=== PATIENT | female | born 1940 | race Caucasian/White ===

== ENCOUNTER 2016-10-08 10:53 | Observation (INO) | payer OTHER ==
[~2016-10-08] VITALS: Ht 144.8 cm; Wt 66.0 kg
--- NOTE | ~2016-10-08 | MR18 ---
[facility] A Service of [facility] RADIOLOGY TEXT RESULTS PATIENT: SHAI RAMOS LOCATION: [facility] 320-01 : 41 UNIT #: [id number] AGE: [address]: Consuelo Owusu MD SEX: F ORDER DR: [id number] [facility] [address] [place], [place] [address] [id number] I MR#: [id number] Acc #: [id number] NAME: SHAI RAMOS : 1940 SEX: F STUDY DATE/TIME: 10/08/2016 13:04 [facility] ROOM: 320 STUDY DESCRIPTION: MR Brain Wo Contrast Attending Physician: Brit Reinoso M.D. Ordering Physician: Jerzy Lyons M.D. Primary Care Physician: Ana Ospina M.D. MRI CENTER REPORT This report is preliminary unless electronic signature is present. EXAM MRI of the brain without contrast dated 10/08/2016. COMPARISON MRI of the brain without contrast dated 08/26/2014. HISTORY Difficulty with speech. Patient was last seen normal at 0900 hours on 10/08/2016. History of stroke 2 years ago. FINDINGS Multisequence multiplanar imaging of the brain was obtained without contrast. There appears to be a dural-based mass along the superior aspect of the right anterior clinoid process and extending posterior and inferior to it. There is also some medial and lateral extension along the nearby bone. It has a lobulated appearance. It measures 1.3 x 2.2 x 0.8 cm. It was also noted in the prior study. It appears to have increased in overall volume from 0.9 x 1.3 x 0.4 cm. Postcontrast evaluation would be helpful. There are multiple patchy hyperintense T2-signal lesions noted in the periventricular and subcortical white matter. Previously noted large stroke in the left posterior frontal and anterior left parietal region have evolved in the interval towards gliosis and encephalomalacic changes. Hyperintense T2-signal changes are also noted in bilateral external/extreme capsules. S-shaped nasal septal deviation is seen. Paranasal sinuses, orbits with the ocular structures are unremarkable. Moderate right and ywrs-hb-ikzanuno left mastoid mucosal thickening is seen. IMPRESSION 1. No acute stroke. 2. There appears to be a lobulated dural-based mass in the region of the right anterior clinoid process extending medially and laterally along the sphenoid wing. It is most suggestive of lesion like meningioma. [facility]. [facility] A Service of [facility] RADIOLOGY TEXT RESULTS PATIENT: SHAI RAMOS LOCATION: [facility] 320-01 : 41 UNIT #: [id number] AGE: [address]: Consuelo Owusu MD SEX: F ORDER DR: It is increased in volume when compared to the prior study from 2 years ago, when it measured 0.9 x 1.3 x 0.4 cm. It probably has a greatest dimension of 1.3 cm than when compared to the current 2.2 cm along the oblique sagittal dimension. 3. Multiple hyperintense T2-signal lesions are scattered throughout the brain, predominantly in the supratentorial white matter. They are likely related to [id number] chronic microvascular ischemic change and old lacunar infarcts, based on age and statistics. Dictated by... Woo Fajardo M.D. THIS IS AN ELECTRONICALLY VERIFIED REPORT Woo Faajrdo M.D. at 10/15/2016 4:06 PM CPR/psc TD: 10/08/2016 22:38 JOB #: [id number] MRI CENTER REPORT Page 1 of 1 COPY
--- NOTE | ~2016-10-08 | CT18 ---
[facility] A Service of [facility] RADIOLOGY TEXT RESULTS PATIENT: SHAI RAMOS LOCATION: [facility] 320-01 : 41 UNIT #: [id number] AGE: [address]: Consuelo Owusu MD SEX: F ORDER DR: [id number] [facility] [address] [place], [place] [address] [id number] I MR#: [id number] Acc #: [id number] NAME: SHAI RAMOS : 1940 SEX: F STUDY DATE/TIME: 10/08/2016 11:13 UNIT: A U ROOM: 320 STUDY DESCRIPTION: CT Angio Head Stroke Attending Physician: Consuelo Owusu M.D. Ordering Physician: Jerzy Lyons M.D. Primary Care Physician: Ana Ospina M.D. MEDICAL IMAGING REPORT This report is preliminary unless electronic signature is present EXAM CT angiogram of the head and neck with contrast dated 10/08/2016. COMPARISON CT angiogram head and neck with contrast dated 08/26/2014. HISTORY Patient was last known to be normal at 0900 hours today. Patient now has difficulty speaking. History of TIA, stroke. TECHNIQUE CT angiogram of the head and neck was obtained with IV contrast in the axial plane. Curved reformats of the major neck carotid and vertebral arteries were performed. The kenaitze of Ortiz reformats were obtained in 3 planes along with tumbling 3-D MIP images and surface-rendered images. This CT exam was performed with one or more of the following radiation dose reduction techniques: automatic exposure control, adjustment of mA and/or kV according to patient size, and iterative reconstruction. FINDINGS NECK: Two-vessel aortic arch is seen. The left common carotid artery arises from the innominate artery. Atherosclerotic plaques are noted in the aortic arch and origins of the major great vessels. Bilateral common carotid arteries demonstrate scattered atherosclerotic plaques. Prominent plaques are also noted in bilateral internal carotid artery bulbs, right worse than left. The stenosis in the right ICA bulb is measured at 50% to 60% and the left ICA stenosis is measured at 30% to 35% per NASCET criteria. No significant distal flow limitation is seen in bilateral cervical ICA. Atherosclerotic plaques are noted at the origins of bilateral external carotid arteries with moderate to severe left and mild to moderate right ECA stenosis. The left vertebral artery is slightly dominant. Bilateral vertebral arteries demonstrate expected course, STS. [facility] A Service of [facility] RADIOLOGY TEXT RESULTS PATIENT: SHAI RAMOS LOCATION: [facility] 320-01 : 41 UNIT #: [id number] AGE: [address]: Consuelo Owusu MD SEX: F ORDER DR: caliber, and flow. No obvious dissection, aneurysm, or AVM is seen. HEAD: Bilateral intracranial internal carotid arteries demonstrate atherosclerotic plaques in bilateral cavernous and supraclinoid ICA. The A1 segment of the right KATELYNN is of smaller caliber when compared to the left. It is uniform and smooth appearing. 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 ACom is present. Bilateral middle cerebral arteries demonstrate slightly decreased flow in the one of the major left MCA branches which also contributions to the angular branch but it is not demonstrating any atherosclerotic plaques or focal change in flow along its caliber. No proximal stenosis is noted either. It is just of smaller caliber and contrast enhancement intensity when compared to the right MCA. There is probably a vessel arising from the ACom, likely the median artery of the corpus callosum, an incidental branch. Bilateral posterior communicating arteries appear to feed P2 and distal portions of bilateral BR[employer]GE GANG WORKER with hypoplastic bilateral P1 segments giving rise to a persistent appearance. 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 No distant significant flow compromise is seen. There is no aneurysm or significant stenosis seen. Basilar artery is unremarkable. There is decrease in caliber of bilateral vertebral arteries as they extend towards the vertebrobasilar junction. No obvious aneurysm or AVM is seen. There is an enhancing solid mass noted in the right side of the planum sphenoidale and around the right anterior clinoid process extending towards the right cavernous sinus. It is difficult to measure. It is at least 1.2 x 2.0 cm. It does not appear to narrow the cavernous right ICA. MRI of the brain was obtained without contrast on the same day, limiting evaluation on the MRI brain. Refer to the MRI brain for a demonstration of other findings. No obvious acute stroke was noted. Degenerative changes are noted in the cervical spine, mild. There are some hyperdensities noted in the inferior aspect of the right thyroid lobe. They could represent calcification or surgical ranjana. Correlate with history. The right thyroid lobe appears to be relatively symmetrical when compared to the left. Nasal septum is deviated to the right. IMPRESSION 1. No hemodynamically flow-limiting significant stenosis in bilateral internal carotid artery bulbs per NASCET criteria. 2. The right internal carotid artery demonstrates 50% to 60% focal short segment of stenosis of the proximal right ICA per NASCET criteria. There is about 30% to 40% narrowing of the left internal carotid artery proximally. 3. There is an enhancing solid mass noted in the right side of the planum sphenoidale and around the right anterior clinoid process extending towards the right cavernous sinus. It is difficult to measure. It is at least 1.2 x 2.0 cm and a distance towards the right lateral cavernous sinus. It is probably a dural based mass like a meningioma. MRI of the brain was obtained on the same day but it was obtained without contrast, limiting its evaluation. Postcontrast MRI [facility]. [facility] A Service of [facility] RADIOLOGY TEXT RESULTS PATIENT: SHAI RAMOS LOCATION: A 320-01 : 41 UNIT #: [id number] AGE: [address]: Consuelo Owusu MD SEX: F ORDER DR: brain alone can be obtained for further characterizing it. 4. Refer above for detailed description of various other smaller findings. 5. No aneurysm or AVM. Dictated by... Woo Fajardo M.D. THIS IS AN ELECTRONICALLY VERIFIED REPORT Woo Fajardo M.D. at 10/10/2016 3:19 PM CPR/tmw TD: 10/09/2016 09:16 JOB #: [id number] MEDICAL IMAGING REPORT Page 1 of 1 COPY
--- NOTE | ~2016-10-08 | DS ---
Unit #: [id number] #: [id number] Patient: SHAI OSUNA [id number] [address] [place], [place] [address] [id number] I MR#: [id number] NAME: SHAI OSUNA ROOM: 320 Age: 76 Sex: F Admission Date: 10/08/2016 : 1940 Discharge Date: 10/09/2016 Attending Physician: Consuelo Owusu M.D. Primary Care Physician: Ana Ospina M.D. DISCHARGE SUMMARY PRINCIPAL DIAGNOSES 1. Acute dysarthria secondary to TIA plus or minus unmasking. 2. Paroxysmal atrial fibrillation, currently in normal sinus rhythm, maintained on anticoagulation. 3. 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 4. Prior history of a stroke. 5. Hypertension. 6. Coronary artery disease. 7. Hyperlipidemia with stable LDL of 52. SENIOR ESCROW OFFICER(S) 1. Dr. Okeefe, neurology. 2. Dr. Freedman, vascular surgery. PROCEDURE(S) 1. 2-dimensional echocardiogram which is which is currently pending. 2. CT of the head without contrast on October 08, 2016, with extensive chronic microvascular disease noted, encephalomalacic change with an old left MCA territory infarct noted. 3. CT angiogram of head and neck on October 08, 2016, with no hemodynamically flow-limiting stenosis per NASCET criteria. These readings of ICA stenosis may be more consistent with ECA stenosis. Please see revised study per Dr. Freedman. 4. Right internal carotid artery has 50 to 60% focal short-segment stenosis in the proximal ICA. There is 30 to 40% narrowing in the left internal carotid artery proximally. Enhancing mass around the right anterior coronary process right anterior clinoid process noted, and this was 1.2 x 2 cm. 5. MRI of the brain was negative for any acute ischemic infarct. CLINICAL HISTORY AND HOSPITAL COURSE Ms. Osuna is a 76-year-old female who presents to the emergency department with increasing speech difficulty. The patient has a history of dysarthria since a surgery in 2014 that abruptly became worse. She underwent CT scan of the head in the emergency department which was unremarkable. She was subsequently placed on observation for evaluation. Dr. Okeefe was consulted. An MRI of the brain was done which did not reveal any acute findings. CT of head and neck was also done which initially revealed ICA stenosis which on further review appears to be external carotid artery stenosis. The patient was seen in consultation by Dr. Freedman who will follow the patient in 6 months. The patient's symptoms are completely resolved. She has been compliant with her Xarelto. It is unclear to me whether perhaps this is TIA or perhaps some unmasking Unit #: [id number] #: [id number] Patient: SHAI OSUNA phenomenon, but her symptoms have resolved. We will continue to also place her back on aspirin, and she will follow up with neurology as an outpatient. The patient's other chronic conditions remain stable. CONDITION ON DISCHARGE Stable. DISCHARGE STATUS Discharge to home. DISCHARGE MEDICATIONS 1. Aspirin 81 mg daily. 2. Xarelto 20 mg daily. 3. Norvasc 5 mg daily. 4. Metoprolol succinate 50 mg daily. 5. Lipitor 40 mg daily. DISCHARGE INSTRUCTIONS The patient was instructed to follow a heart healthy diet. She can increase her activity as tolerated. FOLLOWUP The patient's doctor outpatient neurology in 6 weeks. The patient will follow up with Dr. Ospina in 2 weeks. The patient will follow up with Dr. Freedman in 6 months. The patient will follow up with her primary dealer accounts investigator, Dr. Mendez, in 3 weeks. Dictated by... Consuelo Owusu M.D. GALLO/silva TD: 10/11/2016 11:51 JOB #: [id number] DISCHARGE SUMMARY Page 1 of 1 X Consuelo Owusu MD X DISCHARGE SUMMARY
--- NOTE | ~2016-10-08 | CT72 ---
[facility] A Service of [facility] RADIOLOGY TEXT RESULTS PATIENT: SHAI RAMOS LOCATION: [facility] 320-01 : 41 UNIT #: [id number] AGE: [address]: Consuelo Owusu MD SEX: F ORDER DR: [id number] [facility] [address] [place], [place] [address] [id number] I MR#: [id number] Acc #: [id number] NAME: SHAI RAMOS : 1940 SEX: F STUDY DATE/TIME: 10/08/2016 11:04 UNIT: A PCU ROOM: 320 STUDY DESCRIPTION: CT Head Wo Contrast Stroke Attending Physician: Consuelo Owusu M.D. Ordering Physician: Jerzy Lyons M.D. Primary Care Physician: Ana Ospina M.D. MEDICAL IMAGING REPORT This report is preliminary unless electronic signature is present EXAM Noncontrast CT head 10/08/2016 11:04 HISTORY Last known normal at 9 a.m. today. Difficulty with speech. Previous history of stroke. COMPARISON CT head without contrast 08/25/2014. CTA head and neck 08/26/2014. MRI brain 08/26/2014. FINDINGS This CT examination was performed with one or more of the following radiation dose reduction techniques: automatic exposure control, adjustment of mA and/or kV according to patient size, and iterative reconstruction. Chronic encephalomalacic changes are demonstrated within the left frontoparietal and left temporal lobe consistent with old left MCA territory infarct. Extensive hypodensities are seen within the deep white matter of the brain which are favored to represent changes of chronic microvascular disease, greatest in a periventricular distribution. No definite acute infarct is seen at this time. No mass lesion, mass effect or midline shift is evident. No intracranial hemorrhage. No acute or displaced calvarial fracture. Major paranasal sinuses are clear. Intracranial carotid artery calcifications are present. Ventricular configuration is stable without evidence of hydrocephalus. IMPRESSION 1. Extensive chronic microvascular disease changes. Encephalomalacic change consistent with old left MCA territory infarct noted. No acute findings. 2. If the patient's symptoms persist or remain unexplained, consider STS. [facility] A Service of [facility] RADIOLOGY TEXT RESULTS PATIENT: SHAI RAMOS LOCATION: [facility] 320-01 : 41 UNIT #: [id number] AGE: [address]: Consuelo Owusu MD SEX: F ORDER DR: correlation to MRI brain stroke protocol. 3. No acute intracranial hemorrhage. Dictated by... Shazia Castellon M.D. THIS IS AN ELECTRONICALLY VERIFIED REPORT Shazia Castellon M.D. at 10/11/2016 7:37 AM DARRIUS/melissa TD: 10/08/2016 13:09 JOB #: [id number] MEDICAL IMAGING REPORT Page 1 of 1 COPY
--- NOTE | ~2016-10-08 | HP ---
Unit #: [id number] #: [id number] Patient: SHAI RAMOS [id number] [address] [address] [id number] I MR#: [id number] NAME: SHAI RAMOS ROOM: 320 Age: 76 Sex: F Admission Date: 10/08/2016 : 1940 Attending Physician: Belgica Reinoso M.D. Primary Care Physician: Ana Ospina M.D. HISTORY AND PHYSICAL CHIEF COMPLAINT Impaired speech. HISTORY OF PRESENT ILLNESS The patient is a 73-year-old female with a history of paroxysmal atrial fibrillation, hypertension, hyperlipidemia, and left hemispheric CVA two years ago, brought to the emergency room complaining of dysarthria associated with mild left-sided facial droop. The patient is having difficulty with broken speech. The patient stated that patient's speech was involved two years ago when she had the ischemic stroke. However, since this morning at 9:30 a.m. the patient has been complaining of worsening of the dysarthria as well as left facial droop. The patient is being admitted for the above reasons. Patient had a CT of the head that shows no acute intracranial findings and shows the microvascular disease. She is being admitted for the above reasons. Patient denies any chest pain, denies any nausea or vomiting, and denies any headache or any trauma. PAST MEDICAL HISTORY 1. Paroxysmal atrial fibrillation. 2. Hypertension. 3. Hyperlipidemia. 4. Degenerative joint disease. PAST SURGICAL HISTORY 1. Parathyroidectomy. 2. Bilateral total knee replacement. 3. Tonsillectomy. 4. Angioplasty with stents. HOME MEDICATIONS 1. Norvasc. 2. Metoprolol. 3. Lipitor. 4. Xarelto. ALLERGIES No known drug allergies. SOCIAL HISTORY No history of smoking cigarettes, drinking alcohol, or any illicit drug abuse. FAMILY HISTORY Positive for CVA. Unit #: [id number] #: [id number] Patient: SHAI RAMOS REVIEW OF SYSTEMS Positive for aphasia and positive for broken speech. Denies any headache, denies any loss of consciousness, denies any chest pain, denies any shortness of breath. Other systems were reviewed and are none. PHYSICAL EXAMINATION GENERAL: Patient is lying in bed not in acute distress. VITAL SIGNS: Temperature 97.6, pulse 79, respiratory rate 14, blood pressure 122/89, and saturating 100% on room air. HEENT: Head atraumatic, normocephalic. Pupils equal, round, and reactive to light and accommodation. Extraocular movements are intact. NECK: Supple. LUNGS: Decreased air entry at the bases. HEART: Regular rate and rhythm. ABDOMEN: Soft. Positive bowel sounds. EXTREMITIES: No cyanosis, no clubbing. NEUROLOGIC: Patient has broken speech with expressive aphasia associated with dysarthria. No weakness. DIAGNOSTIC STUDIES IMAGING: CT of the head shows no acute intracranial findings with microvascular disease and bilateral carotid disease. ASSESSMENT 1. Expressive dysarthria. 2. History of ischemic cerebrovascular accident. 3. Bilateral carotid disease. PLAN Admit the patient to observation with telemetry. Patient will have a Neurology evaluation. Follow with MRI of the brain with and without contrast. Continue with home medications and hold the Xarelto as per Neurology until the MRI results are done. Further recommendations will follow. Dictated by Kasi García TD: 10/08/2016 18:43 JOB #: [id number] HISTORY AND PHYSICAL Page 1 of 1 X BELGICA REINOSO MD X HISTORY AND PHYSICAL
--- NOTE | ~2016-10-08 | CO ---
Unit #: [id number] #: [id number] Patient: SHAI RAMOS [id number] [facility] [address]. [place], [place] [address] [id number] MR#: [id number] NAME: SHAI RAMOS ROOM: 320 Age: 76 Sex: F Admission Date: 10/08/2016 : 1940 Attending Physician: Consuelo Owusu M.D. Primary Care Physician: Ana Ospina M.D. Consultation Date: 10/08/2016 CONSULTATION REPORT REASON FOR CONSULTATION Code stroke protocol. PATIENT IDENTIFICATION 76-year-old right-handed female evaluated initially in the ED at [facility], but also in room 320. SOURCE OF INFORMATION Came from the patient, as well as the medical record. 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 The patient was brought in as a code stroke via EMS with reports of change in speech, questionable facial weakness. The patient was seen on CT scanner upon arrival by myself, as well as Dr. Okeefe emergently. She was not felt to be a candidate for IV alteplase but she takes Xarelto and her last dose was the night prior to arrival. She also did not appear to have any significant measurable disabling deficit. She did have some pretty significant dysarthria within the age of 3. Questionable left facial droop. CT of the head was negative for any intracranial findings. CT angiogram of the head and neck did not show any areas amenable to intervention with thrombectomy. Thus she was admitted here for further workup and evaluation for possible stroke. She woke up in her usual state of health and had a sudden change with new onset symptoms, thus a code stroke was called and the patient was seen emergently upon arrival by the ED physician, myself and Dr. Okeefe, and CT scan. The patient denies the exacerbating or alleviating factors upon re-evaluation. Later in the day the patient's symptoms are essentially resolving, thus concerning for a possible transient ischemia attack. The patient denies any associated vision changes, swallowing difficulty, headache or neck pain, fever or chills, change in weight or routine. No change in medications, any focal weakness or paresthesia, loss of consciousness, shortness of air, chest pain, nausea, vomiting, or abdominal pain, any headache or recent trauma. PAST MEDICAL HISTORY 1. Paroxysmal atrial fibrillation. 2. Hypertension. 3. Hyperlipidemia. 4. DJD. 5. She was seen at this facility in 08/2014 for multifocal left MCA Unit #: [id number] #: [id number] Patient: SHAI RAMOS territory ischemic stroke, likely secondary to atrial fibrillation. She was started on Xarelto and aspirin. As a result of that stroke she had some speech difficulty but reports her symptoms did resolve over time and then at baseline she has clear speech. 6. Parathyroidectomy. 7. Bilateral total knee replacement. 8. Tonsillectomy. 9. Angioplasty with stenting. Her boat painter is Dr. Mele Mendez. ALLERGIES No known drug allergies. HOME MEDICATIONS 1. Xarelto. 2. Lipitor. 3. Metoprolol. 4. Norvasc. 5. She states that she does not take aspirin and has not done so for quite some time. She denies any intolerance or bleeding on aspirin or the Xarelto but just reports that she was taken off of it over time and was told that she needed only Xarelto. ALLERGIES No known drug allergies. FAMILY HISTORY Positive for CVA. SOCIAL HISTORY She denies tobacco use, alcohol use or illicit drug use. REVIEW OF SYSTEMS 14 point review of systems was done. Pertinent positive were discussed above, otherwise negative. PHYSICAL EXAMINATION VITAL SIGNS: Temperature 97.5, pulse 77, respirations 16, blood pressure 142/84, oxygen saturation 100%, height 4'9", weight 146 pounds. NEUROLOGICAL EXAM: The patient is awake, alert and oriented to person, place and time, as well as events, no right/leg confusion, no finger agnosia. She has some trouble with repetitive speech, sometime broken. No clear aphasia. She is very dysarthric. She can follow commands. No receptive difficulties. CRANIAL NERVE EXAM: She demonstrates full mitchell of vision. Eyes are conjugate with ptosis or nystagmus. Extraocular movements are intact. Sensation of the face and scalp was intact. Muscle facial expression appears essentially intact. Questionable left mild facial drooping but no significant flattening of the nasolabial folds. Hearing is intact to conversation. Tongue is midline. Uvula is midline. Palate elevation is normal. Head turning and shoulder shrug are unremarkable. Neck was supple. MOTOR EXAM: She demonstrates normal bulk and tone. Strength is equal 5 out of 5 in all extremities. SENSORY EXAM: Intact. GAIT AND ROMBERG: Deferred. REFLEXES: 1 out of 4. Toes are mute. COORDINATION: Unremarkable. Unit #: [id number] #: [id number] Patient: SHAI RAMOS DIAGNOSTIC STUDIES IMAGING STUDIES: CT of head without contrast, stroke protocol on 10/08/2016. This is a chronic microvascular disease. Changes of encephalomalacia change consistent with old left MCA territory infarct noted. No acute findings. No acute intracranial hemorrhage. CT angiogram of the head and neck, day of evaluation and consultation includes a wet read, which shows extensive calcifications bilaterally, some carotid disease noted. Full dictated report pending and final neuro radiology read pending. aging was reviewed by Dr. Okeefe and has requested a vascular consultation. LABORATORY STUDIES: TSH 2.20, CRP less than 0.5, cholesterol 120, triglycerides 108, LDL 52, HDL 46. BNP unremarkable other than glucose of 111 and alk phos 104. PT 13.8, INR 1.3, (1) 31.3. CBC unremarkable other than MCV of 82 and MCH of 26, glucose on arrival 96.6. IMPRESSION 1. Clinical concern for right hemispheric TIA with dysarthria and questionable left facial droop. Symptoms resolving. No ischemic infarct seen on MRI of the brain not discussed above. MRI of the brain is negative for any acute findings. Old prior left MCA territory infarcts noted. 2. Bilateral carotid disease vascular surgery consulted. I spoke with Dr. Freedman who recommended vascular followup in six months and has reviewed imaging as discussed with neuro radiology. No high grade internal carotid stenosis seen. 3. Chronic atrial fibrillation on Xarelto. 4. Hypertension. 5. CAD, status post stent in the past. 6. Hyperlipidemia. PLAN Please see above. Patient is an alteplase candidate. Patient was seen by Dr. Okeefe in the CT scanner. I have discussed imaging with him following that and also discussed with Dr. Freedman with vascular surgery. Will continue added aspirin. The patient has received a dose today. Recommend continuing antiplatelet therapy in addition to Xarelto, given the possibility of transient ischemia attack. Patient is already on atorvastatin. Further recommendation is being made pending workup and further clinical course and re-evaluation in the morning and discussion with Dr. Okeefe for further recommendation and plans. Will follow tonight for observation. Please call for any questions or issues. We thank you very much for allowing us to assist in the care of this patient. Dictated by... Ervin ArmstrongPGretchenRJacque for Kasi Tariq/gabriella TD: 10/10/2016 10:04 JOB #: [id number] Unit #: [id number] #: [id number] Patient: SHAI RAMOS CONSULTATION REPORT Page 1 of 1 X Julianne Aponte [employer]ER [employer] SEINE X CONSULTATION REPORT
--- NOTE | ~2016-10-08 | CO ---
Unit #: [id number] #: [id number] Patient: SHAI RAMOS [id number] [facility]. [place], [place] [address] [id number] MR#: [id number] NAME: SHAI RAMOS ROOM: [facility] Age: 76 Sex: F Admission Date: 10/08/2016 : 1940 Attending Physician: Consuelo Owusu M.D. Primary Care Physician: Ana Ospina M.D. Consultation Date: 10/08/2016 CONSULTATION REPORT REASON FOR CONSULTATION Carotid atherosclerosis. HISTORY OF PRESENT ILLNESS This is a 76-year-old female admitted to [facility] after an episode of dysarthria today. She has a history of having a cerebrovascular accident about two years related to atrial fibrillation. She has been managed with Xarelto anticoagulation since that time. Today, she reports that she was outside filling up her bird feeder and talking to a neighbor whenever her speech became unintelligible. She remembered from previous medical discussions that she should go to the hospital. She has since underwent CTA imaging, which has identified carotid atherosclerosis for which we are seeing her. PAST MEDICAL HISTORY 1. Atrial fibrillation. 2. Cerebrovascular accident. 3. Hypertension. 4. Hyperlipidemia. 5. Thyroid surgery. 6. History of bilateral knee replacement. ALLERGIES No known drug allergies listed. MEDICATIONS 1. Amlodipine 5 mg p.o. daily. 2. Metoprolol 50 mg p.o. daily. 3. Atorvastatin 40 mg daily. 4. Xarelto 20 mg daily. SOCIAL HISTORY Patient resides in her own home. She is retired. She denies smoking, alcohol, or drug use. FAMILY HISTORY Noncontributory. REVIEW OF SYSTEMS Unless noted in the history of present illness, a complete review of systems was completed and otherwise negative. PHYSICAL EXAMINATION VITAL SIGNS: Temperature 97.5, heart rate 77, blood pressure 151/104, Unit #: [id number] #: [id number] Patient: SHAI RAMOS respirations 16. GENERAL APPEARANCE: This is a well-developed, well-nourished female in no acute distress. (1) appropriate affect. Answers questions appropriately. Mild voice defect which is a residual from a stroke two years ago. HEENT: Normocephalic. Pupils equal, round, and reactive to light. NECK: Soft left carotid bruit on auscultation. CARDIAC: Regular rate and rhythm. Patient does not seem to be in atrial fibrillation based on these examination findings. LUNGS: Clear to auscultation with diminished bilateral bases. ABDOMEN: Positive bowel sounds. Abdomen soft, nontender, no distention. MUSCULOSKELETAL: Moves all extremities with full range of motion. Strong equal cage shift manager bilaterally. No hand or foot drift when lifted off the bed. VASCULAR: Palpable radial, femoral, DP/PT pulses bilaterally. INTEGUMENTARY: Skin is warm and dry with no obvious sores, lesions, or nonhealing wounds. NEUROLOGIC: Cranial nerves II-XII are grossly intact with again as mentioned above, voice defect from old stroke. She is otherwise back to her neurological baseline related to her most recent stroke-like symptoms. PSYCHIATRIC: Oriented to person, place, and time. DIAGNOSTIC STUDIES LABORATORY: Sodium 137, potassium 3.9, chloride 104, CO2 of 24, BUN 23, creatinine 0.9, glucose 111. Hemoglobin 12.7, hematocrit 39.3, WBC 7.8, platelets 225,000. IMAGING: The patient underwent CTA of the head and neck with official radiology read interpreting it as left internal carotid artery with about 64% and right internal carotid artery with about 50% stenosis by NASCET criteria. ASSESSMENT AND PLAN Carotid atherosclerosis: CTA read shows left internal carotid artery with about 54% stenosis and right with 50% stenosis. Generally, we consider patient's for carotid endarterectomy when stenosis reaches the point of 70% or greater unless they are symptomatic. Will follow along this hospitalization with testing to try to determine if this event was related to carotid atherosclerosis versus atrial fibrillation causing a stroke. Will discuss with on-call physician, Dr. Freedman. Dictated by... Jonel Lopez APRN for Kasi Felipe/germain TD: 10/09/2016 09:35 JOB #: [id number] Unit #: [id number] #: [id number] Patient: SHAI RAMOS CONSULTATION REPORT Page 1 of 1 X X CONSULTATION REPORT
--- NOTE | ~2016-10-08 | CT24 ---
[facility] A Service of [facility] & [facility] RADIOLOGY TEXT RESULTS PATIENT: SHAI RAMOS LOCATION: [facility] 320-01 : [birth year] UNIT #: [id number] AGE: [address]: Consuelo Owusu MD SEX: F ORDER DR: [id number] [facility] [address]. [place], [place] [address] [id number] MR#: [id number] #: [id number] NAME: SHAI RAMOS : 1940 SEX: F STUDY DATE/TIME: 10/08/2016 11:13 UNIT: [address] ROOM: [facility] STUDY DESCRIPTION: CT Angio Neck Stroke Attending Physician: Consuelo Owusu M.D. Ordering Physician: Jerzy Lyons M.D. Primary Care Physician: Ana Ospina M.D. MEDICAL IMAGING REPORT This report is preliminary unless electronic signature is present EXAM CT angiogram of the neck with contrast dated 10/08/2016. HISTORY Patient was last known to be normal at 0900 hours today. Patient now has difficulty speaking. History of TIA, stroke. FINDINGS Please see CT angio head stroke for results. Dictated by... Woo Fajardo M.D. THIS IS AN ELECTRONICALLY VERIFIED REPORT Woo Fajardo M.D. at 10/10/2016 3:21 PM CPR/tmw TD: 10/09/2016 09:17 JOB #: [id number] MEDICAL IMAGING REPORT Page 1 of 1 COPY
--- NOTE | ~2016-10-08 | EKG ---
PATIENT: SHAI RAMOS UNIT #: [id number] Ventricular Rate: 78 BPM Atrial Rate: 78 BPM P-R Interval: 146 ms QRS Duration: 80 ms Q-T Interval: 404 ms QTC Calculation(Bezet): 460 ms P [place]: 59 degrees Calculated R [place]: -15 degrees Calculated T [place]: 35 degrees Diagnosis Line: Normal sinus rhythm Diagnosis Line: Minimal voltage criteria for LVH, may be normal Diagnosis Line: variant Diagnosis Line: Borderline ECG Diagnosis Line: When compared with ECG of 25-AUG-2014 23:41, Diagnosis Line: No significant change was found Diagnosis Line: Confirmed by MAGI EDMONDSON MD ([id number]) on 10/09/2016 Diagnosis Line: 11:40:18 PM INTERPRETING MD: DEBO OCHOA
[~2016-10-08 10:53] MED LIST: AMIODARONE; AMLODIPINE BESYL5 MG PO; ASPIRIN PO; ASPIRIN81 M2 PO; AZOR; AZOR 5/40 MG TA1 TAB PO; COUMADIN; LIPITOR PO; METOPROLOL SUCC50 MG PO; OS-CAL 500 + D500 MG; OS-CAL 500+D CA1 TA1 PO; PERCOCET5/325 PO; PLAVIX PO; SIMVASTATIN20 MG PO; TOPROL XL PO; XARELTO20 MG PO
[2016-10-08 11:18] LABS: BASOPHIL% 0.6 % (0-2.5); EOSINOPHIL# 0.1 X10e3 (0-0.7); EOSINOPHIL% 0.9 % (0.0-7.0); HEMATOCRIT 39.3 % (35.0-45.0); HEMOGLOBIN 12.7 gm/dL (12.0-16.0); LYMPHOCYTE# 2.3 X10e3 (1.0-3.5); LYMPHOCYTE% 30.2 % (17.0-45.0); MEAN CORPUSCULAR HEMOGLOBIN 26.5 PG (28-34); MEAN CORPUSCULAR HGB CONC 32.4 g/dL (30-36); MEAN PLATELET VOLUME 8.9 FL (6.5-11.5); MONOCYTE# 0.6 X10e3 (0-1.0); MONOCYTE% 7.3 % (3.0-12.0); NEUTROPHIL# 4.7 X10e3 (1.5-7.1); PLATELET COUNT 225 X10e3 (140-420); RED BLOOD COUNT 4.79 X10e (3.90-5.30); RED CELL DISTRIBUTION WIDTH 15.2 % (11.0-15.5); WHITE BLOOD COUNT 7.8 X10e3 (4.0-10.5)
[2016-10-08 11:19] LABS: DIFF IND NO
[2016-10-08 11:31] LABS: INR 1.3; PARTIAL THROMBOPLASTIN TIME 31.3 SECONDS (23.5-31.3); PROTHROMBIN TIME (PATIENT) 13.8 SECONDS (10.0-11.7)
[2016-10-08 11:42] LABS: ALBUMIN SERUM 4.1 g/dL (3.5-5.0); BILIRUBIN, DIRECT 0.2 mg/dL (0.0-0.2); BILIRUBIN,INDIRECT 0.7 mg/dL (0.0-0.9); BILIRUBIN,TOTAL 0.9 mg/dL (0.2-2.0); BUN/CREATININE RATIO 25.55; CREATININE SERUM 0.9 mg/dL (0.6-1.4); GLOM FILT RATE Estimated 62.6 mL/min (>60); POTASSIUM 3.9 mmol/L (3.5-5.1); PROTEIN TOTAL SERUM 7.4 g/dL (6.0-8.3)
[2016-10-08] MEDS ORDERED: METOPROLOL SUCC50 MG PO (12:50)
[2016-10-08] MEDS ORDERED: AMLODIPINE BESYL5 MG PO (12:50)
[2016-10-08] MEDS ORDERED: LIPITOR40 MG PO (12:51)
[2016-10-08] MEDS ORDERED: XARELTO20 MG PO (12:51)
[2016-10-08 13:13] LABS: CHOLESTEROL 120 mg/dL (0-200); HDL CHOLESTEROL 46 mg/dL (35-95); LDL CHOLESTEROL 52 mg/dL (-130); LDL/HDL RATIO 1 RATIO (0-4); TRIGLYCERIDES 108 mg/dL (10-160)
[2016-10-08] MEDS ORDERED: MR (14:53)
[2016-10-08 18:35] LABS: POC - CREATININE 0.66 mg/dL (0.44-1.03); POC - GFR >60.0 mL/min (>60)
[2016-10-09] MEDS ORDERED: ASPIRIN81 M2 PO (11:59)
== END 2016-10-09 14:06 | disposition home or self-care (01) ==
LOC: CED 10:53 → CEDOF 12:33 → C3A PCU 12:33 → CEDOF 12:33 → CED 12:57 → CEDOF 12:57 → C3A PCU 14:35
PROVIDERS: Emergency Medicine; Internal Medicine
DX: G45.9 Transient cerebral ischemic attack, unspecified (principal); I48.0 Paroxysmal atrial fibrillation; I65.21 Occlusion and stenosis of right carotid artery; I25.10 Atherosclerotic heart disease of native coronary artery without angina pectoris; E78.5 Hyperlipidemia, unspecified; E89.2 Postprocedural hypoparathyroidism; Z79.01 Long term (current) use of anticoagulants; Z79.82 Long term (current) use of aspirin; Z79.899 Other long term (current) drug therapy; Z96.653 Presence of artificial knee joint, bilateral; Z86.73 Personal history of transient ischemic attack (TIA), and cerebral infarction without residual deficits; Z95.5 Presence of coronary angioplasty implant and graft
CPT/HCPCS: 36415; 70450; 70496; 70498; 70551; 80048; 80061; 80076; 82565; 82947; 83036; 84443; 85025; 85610; 85730; 86140; 92523-GN; 92610; 93005; 93306; 97161; 97166; 99285; G0378; G8978-GP; G8979-GP; G8980-GP; G8987-GO; G8988-GO; G8989-GO; G8999-GN; G9158-GN; G9186-GN; Q9967